=== PATIENT | male | born 1980 | race Caucasian/White ===

== ENCOUNTER 2017-02-18 12:22 | Emergency (ER) | payer OTHER ==
[2017-02-18 12:27] VITALS: BP 127/90; PULSE 86; TEMP 98.3; BMI 30.7
[2017-02-18] MEDS ORDERED: KETOROLAC TROMETHAMINE 60 MG/2 ML VIAL IM ONE (12:58)
[2017-02-18] MEDS ORDERED: KETOROLAC TROMETHAMINE 60 MG/2 ML VIAL ONE (13:01)
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
[2017-02-18 14:19] LABS: HIV 1 & 2 AB NEGATIVE; HIV 1 AGp24 NEGATIVE
== END 2017-02-19 19:37 | disposition home or self-care (01) ==
LOC: JERFT 12:22
PROC: 3E0233Z Introduction of Anti-inflammatory into Muscle, Percutaneous Approach (ICD-10-PCS; principal; 2017-02-18)
DX: M62.830 Muscle spasm of back (principal); V89.2XXA Person injured in unspecified motor-vehicle accident, traffic, initial encounter; Y92.414 Local residential or business street as the place of occurrence of the external cause; Y93.89 Activity, other specified
CPT/HCPCS: 36415; 87389; 99281-25